=== PATIENT | female | born 1950 | race African-American/Black ===

== ENCOUNTER 2016-03-12 20:24 | Inpatient (IN) ==
[2016-03-12] MEDS ORDERED: *HR* HYDROmorphone (PF) 1 MG/ML SYRINGE IVP ONE (20:51)
[2016-03-12] MEDS ORDERED: Ondansetron 4 MG/2 ML VIAL IVP ONE ×2 (20:51→23:11)
[2016-03-12 21:29] LABS: Basophils % 0.8 %; Eosinophils # 0.1 K/mcL (0.0-0.6); Eosinophils % 2.5 %; Hematocrit 24.2 % (35.3-44.9); Immature Granulocytes % 0.6 % (0-4); Lymphocytes % 18.1 %; Mean Corpuscular HGB Conc 33.1 g/dL (31.6-35.5); Mean Corpuscular Hemoglobin 26.5 pg (28.0-33.3); Mean Corpuscular Volume 80.1 fL (83.0-100.0); Monocytes % 18.7 %; Neutrophils # 3.1 K/mcL (1.6-8.9); Nucleated Red Blood Cells 1.3 /100 WBC (0); Platelet Count 119 K/mcL (140-400); Red Blood Count 3.02 M/mcL (3.82-4.97); Red Cell Distribution Width 25.9 % (11.5-14.5); Segmented Neutrophils % 59.3 %
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
[2016-03-12 21:41] LABS: INR 1.6; Prothrombin Time 17.6 Seconds (9.4-12.1)
[2016-03-12 21:44] LABS: Activated Partial Thrombo Time 38.8 Seconds (26.0-36.0)
[2016-03-12 21:57] LABS: Acanthocytes 1+ (Not Present); Hypochromasia Present (Not Present); Platelet Estimate Normal (Normal)
[2016-03-12 22:13] LABS: Albumin 2.1 g/dL (3.5-5.0); Albumin/Globulin Ratio 0.4 (1.1-2.2); Bilirubin,Direct 1.6 mg/dL (0.0-0.5); Bilirubin,Indirect 0.6 mg/dL (0.0-1.2); Bilirubin,Total 2.2 mg/dL (0.2-1.2); Calcium 8.5 mg/dL (8.6-10.8); Globulin 5.5 g/dL (2.4-3.5); Potassium 3.3 mEq/L (3.5-4.5); Total Protein 7.6 g/dL (6.0-8.3)
[2016-03-12 23:22] LABS: Bilirubin,Urine Negative (Negative); Blood,Urine Moderate (Negative); Clarity,Urine Cloudy (Clear); Color,Urine Dark Yellow (Yellow); Glucose,Urine (UA) Normal (Normal); Ketones,Urine Negative (Negative); Leukocyte Esterase,Urine Moderate (Negative); Nitrite,Urine Negative (Negative); Protein,Urine 30 mg/dL (Neg-Trace); Urobilinogen,Urine Normal (Normal)
[2016-03-12 23:24] LABS: Bacteria,Urine Many per hpf (None-Few); Hyaline Casts,Urine None Seen per lpf (None-Few); RBC,Urine 15-30 per hpf (0-3); Squamous Epithelial Cell,Urine Many per lpf (None-Few); WBC,Urine TNTC per hpf (0-3)
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
[2016-03-13] MEDS ORDERED: Naloxone 0.4 MG/ML INJ IVP PRN (01:19)
[2016-03-13] MEDS ORDERED: *HR* Morphine 2 MG/ML SYRINGE IVP PRN (01:19)
[2016-03-13] MEDS ORDERED: Ondansetron 4 MG/2 ML VIAL IVP PRN (01:19)
[2016-03-13] MEDS ORDERED: 0.9 % Sodium Chloride 1,000 ML ONE (04:31)
[2016-03-13] MEDS ORDERED: *HR* Heparin 5,000 UNIT/ML VIAL SQ SCH (06:00)
[2016-03-13] MEDS: *HR* Morphine 2 MG/ML SYRINGE IVP PRN (10:02)
[2016-03-13] MEDS ORDERED: Sennosides/Docusate Sodium TABLET PO PRN (11:08)
--- NOTE | 2016-03-13 11:38 | Nephrology Consult Note ---
Date of Encounter: 03/13/16 Time of Encounter: 11:34 Assessment and Plan (1) Acute kidney failure Current Visit: No Status: Acute Patient has acute kidney failure likely secondary to prerenal azotemia secondary to poor by mouth intake along with nausea and vomiting. I recommend intravenous hydration that will need to be limited secondary to her current volume overloaded status. She eventually will need cautious diuresis once her renal function has improved. Strict Is and Os to monitor urine output. Cautious replacement of potassium. Qualifiers: Acute renal failure type: unspecified Qualified Code(s): N17.9 - Acute kidney failure, unspecified (2) CHF (congestive heart failure) Current Visit: Yes Status: Acute Patient with volume overload. Cardiology consulted. Caution with diuresis. Qualifiers: Congestive heart failure type: unspecified congestive heart failure type Congestive heart failure chronicity: chronic Qualified Code(s): I50.9 - Heart failure, unspecified (3) CKD (chronic kidney disease) stage 3, GFR 30-59 ml/min Current Visit: No Status: Chronic Per previous labs the patient has stage IIIB chronic kidney disease. Likely etiology is hypertension and diabetes, but I will look for other causes the serological workup that has been ordered. I recommend avoiding nephrotoxic agents, and adjusting medications for renal function. I am hopeful that her renal function will return to her baseline creatinine of around 1.7. Upon discharge she will need to follow up with [facility]. (4) Diabetes mellitus Current Visit: No Status: Chronic Per primary team. Qualifiers: Diabetes mellitus type: type 2 Diabetes mellitus complication status: with kidney complications Diabetes mellitus complication detail: with chronic kidney disease Diabetes mellitus retirement insulin use: without intermodal dispatcher use Chronic kidney disease stage: stage 4 (severe) Qualified Code(s): E11.22 - Type 2 diabetes mellitus with diabetic chronic kidney disease; N18.4 - Chronic kidney disease, stage 4 (severe) (5) Afib Current Visit: Yes Status: Acute Patient has afib with RVR and is on a cardizem drip. Rate is improving. Cardiology consulted. Follow. Qualifiers: Qualified Code(s): I48.91 - Unspecified atrial fibrillation (6) Pulmonary hypertension Current Visit: Yes Status: Acute Await cardiology evaluation. Caution with diuresis. (7) UTI (urinary tract infection) Current Visit: Yes Status: Acute Continue antibiotics. Qualifiers: Urinary tract infection type: site unspecified Hematuria presence: with hematuria Qualified Code(s): N39.0 - Urinary tract infection, site not specified; R31.9 - Hematuria, unspecified (8) Anemia Current Visit: Yes Status: Acute Agree with checking iron stores, vitamin B12, and folate. Evaluate for sources of blood loss. This may be related to her renal dysfunction and require erythropoiesis stimulating agents. Qualifiers: Qualified Code(s): D64.9 - Anemia, unspecified (9) Thrombocytopenia Current Visit: Yes Status: Acute Per the primary team. History of Present Illness - Reason for Consult Consult date: 03/13/16 Acute Kidney Injury - Chief Complaint OLGA nausea and vomiting - History of Present Illness Ms. Acosta is a 65 yo woman recently relocated to the area from [place] to live with her son who presents to [facility] for the evaluation of one week of nausea, vomiting and abdominal pain. She denies chest pain, but states she has stable shortness of breath. She also complains of constipation. 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 She reports occasionally taking Aleve, but denies taking any other over the counter medications. She denies any other problems. Past Med Surg Social Fam HX - Past Medical History Medical history: CHF, DVT, diabetes, hyperlipidemia Psychiatric history: no psych history - Past Surgical History Surgical History: hip replacement, knee replacement - Social History Smoking Status: Never smoker Smokeless Tobacco Status: No Alcohol use: none Drug use: none - Family History Mother Living Status: Hx Family Endocrine Disorder: Yes (DM) Father Living Status: Still Living Hx Family Cardiac Disorders: Yes Medications and Allergies Albuterol Neb [Proventil Neb] 2.5 mg IH TID PRN 01/12/16 [History] Bumetanide [Bumex] 1 mg PO BID 01/12/16 [History] Colesevelam [Welchol] 1,875 mg PO BID 01/12/16 [History] Lisinopril [Zestril] 2.5 mg PO DAILY 01/12/16 [History] Metformin [Glucophage] 1,000 mg PO BID 01/12/16 [History] Metoprolol Tartrate [Lopressor] 50 mg PO BID 01/12/16 [History] Rivaroxaban [Xarelto] 20 mg PO QPM 01/12/16 [History] SitaGLIPtin [Januvia] 100 mg PO DAILY 01/12/16 [History] Furosemide [Lasix] 40 mg PO BID #30 01/15/16 [Rx] Magnesium Oxide [Mag-Ox] 400 mg PO BID #30 tablet 01/15/16 [Rx] Potassium Chloride [K-Tab ER] 10 meq PO DAILY #30 tablet.er 01/15/16 [Rx] Allergies No Known Allergies Allergy (Verified 01/11/16 18:31) Review of Systems All Systems: reviewed and no additional remarkable complaints except as stated ( as documented in the HPI.) Exam - Vital Signs Vital signs: Initial Vital Signs Temp Pulse Resp BP Pulse Ox 97.6 F 129 16 109/68 96 03/12/16 20:25 03/12/16 20:25 03/12/16 20:25 03/12/16 20:25 03/12/16 20:25 Vital Signs - Last 8 Hours Temp Pulse Resp BP Pulse Ox 03/13/16 10:40 97.8 F 117 16 94/56 99 03/13/16 06:53 97.8 F 107 15 101/68 97 Intake and Output 03/12/16 03/13/16 03/13/16 23:59 07:59 15:59 Intake Total 0 / 100 Output Total 0 / 0 Balance 0 / 100 Intake: Oral 0 / 0 Output: Urine 0 / 0 Other: Blood Glucose* 112 - General Appearance General appearance: well-developed, well-nourished, obese EENT: ATNC, mucous membranes moist Neck: supple Additional Comments: Rales in bases. Left greater than right. Cardiology: edema, irregular rhythm Additional Comments: tachycardic Gastrointestinal: normoactive bowel sounds, no tenderness Integumentary: warm and dry Neurologic: alert and oriented x3 Musculoskeletal: no cyanosis Psychiatric: mood/affect appropriate Results - Lab Results 03/12/16 21:16 03/12/16 21:44 Most recent lab results Calcium 8.5 mg/dL (8.6-10.8) L 03/12/16 21:44 Consult Discharge Plan - Plan Referrals: NO,PCP [Non-Partnered Physician] -
[2016-03-13] MEDS: Lactulose Oral Soln 20 GM/30 ML UDC PO SCH ×2 (12:28→21:34)
[2016-03-13 13:13] LABS: Magnesium 1.8 mg/dL (1.6-2.6)
--- NOTE | 2016-03-13 13:46 | Internal Med Progress Note ---
<Gaetano Hayward - Last Filed: 03/13/16 13:43> Date of Encounter: 03/13/16 Time of Encounter: 08:20 - Assessment and plan (1) Anasarca Current Visit: Yes Status: Acute Assessment and plan: Secondary to renal failure and congestive heart failure with ascites, abdominal pain, and bilateral pleural effusions. Consideration for SBP. Will order diagnostic paracentesis, likely done tomorrow Given patient's low albumin, anemia, and thrombocytopenia, concern for hepatic disease, LFTs normal We will send peritoneal fluid for diagnostic studies We will consult nutrition for concerns of decreased albumin Will obtain hepatitis panel and HIV Ceftriaxone 2g/day (2) CHF (congestive heart failure) Current Visit: Yes Status: Acute Assessment and plan: Echocardiogram on 01/12/16 demonstrated left ventricular ejection fraction of 60 % with indeterminate diastolic function. There is also suggested findings of right ventricular pressure overload and severe pulmonary hypertension with estimated right ventricular systolic pressure of 65mmHg. and possible severe tricuspid regurgitation The patient is currently volume overloaded with pitting edema to her rib cage and bilateral pleural effusions. Diuresis could result in worsening of tachycardia, hypotension, and renal function Consult to cardiology Qualifiers: Congestive heart failure type: unspecified congestive heart failure type Congestive heart failure chronicity: chronic Qualified Code(s): I50.9 - Heart failure, unspecified (3) Chronic kidney disease, stage 4, severely decreased GFR Current Visit: Yes Status: Acute Assessment and plan: Acute on chronic renal failure. Patient was previously stage 3 CKD. She admits to poor oral intake due to abdominal tightness, nausea and vomiting GFR admission was 24 Will avoid direct fluid repletion due to worsening of third spacing of fluid overload. Will control patient nausea and vomiting and allow her to eat Nephrology following appreciate recommendations for continued management/care Continue to monitor both labs and strict I's and O's Avoid nephrotoxic agents (4) Afib Current Visit: Yes Status: Acute Assessment and plan: Patient presents in A. fib with RVR likely due to patient volume status, third space fluids, and overall discomfort. Patient was started on Cardizem drip admission. Current heart rate in the 110s, but regular. We will continue to titrate Cardizem drip to achieve better heart rate control Cardiology consult and appreciate recommendations for continued management/care Continue to monitor with telemetry Continue anticoagulation with heparin Qualifiers: Qualified Code(s): I48.91 - Unspecified atrial fibrillation (5) Anemia Current Visit: Yes Status: Acute Assessment and plan: Hemoglobin on admission 8.0. Patient does not appear to be any distress caused by her low hemoglobin suggesting this is more of a chronic issue. Unsure of etiology at the moment. Anemia appears microcytic, with normal iron panel, B12 , and folate. Elevated RDW. Patient also has low platelets and albumin, possible concern for liver etiology of anemia, though chronic disease cannot be excluded. We will continue to follow hemoglobin with daily labs We will obtain hepatitis panel Iron profile normal We will obtain fecal occult blood test Qualifiers: Qualified Code(s): D64.9 - Anemia, unspecified (6) Pulmonary hypertension Current Visit: Yes Status: Acute Assessment and plan: Echocardiogram performed in January 2016 shows elevated right ventricular pressure of 65 with potentially severe tricuspid regurgitation. At theology of patient pulmonary hypertension unclear at the moment. Cardiology consulted and appreciate recommendations for continue management/care Continue supplemental oxygen as needed, wean as tolerated (patient baseline oxygenation 5-6 L per hour) (7) Thrombocytopenia Current Visit: Yes Status: Acute Assessment and plan: Suggestive of liver etiology of thrombocytopenia, anemia, low albumin. Plan as above (8) Diabetes mellitus Current Visit: No Status: Chronic Assessment and plan: On [facility] as outpatient. Low-dose insulin sliding scale Qualifiers: Diabetes mellitus type: type 2 Diabetes mellitus complication status: with kidney complications Diabetes mellitus complication detail: with chronic kidney disease Diabetes mellitus nursing home insulin use: without nursing home use Chronic kidney disease stage: stage 4 (severe) Qualified Code(s): E11.22 - Type 2 diabetes mellitus with diabetic chronic kidney disease; N18.4 - Chronic kidney disease, stage 4 (severe) (9) DVT prophylaxis Current Visit: Yes Status: Acute Assessment and plan: Heparin 5000 units subcutaneous twice a day - Subjective Interval history: Patient reports he woke this morning, with a concern of hunger. She states she has had resolution of her nausea that she admits she has not eaten anything due to nothing by mouth status. She denies that she ever had abdominal pain, but describes more as a tightness around her abdomen that she attributes to fluid. She also states she has had tightness in both of her lower extremities recently. She denies chest pain, denies shortness of breath, denies cough, denies fever/chills, denies pain in her sides, denies weakness. - Constitutional Vitals: Temp Pulse Resp BP Pulse Ox 97.7 F 114 16 102/62 94 L 03/13/16 12:18 03/13/16 12:18 03/13/16 12:18 03/13/16 12:18 03/13/16 12:18 General appearance: Present: mild distress, A&O X 3 Exam: General: Cooperative, pleasant, no acute distress, alert and oriented 3, answers questions appropriately Head: Normocephalic, atraumatic Eye: Conjunctiva pink, sclera anicteric, EOMI, PERRL Neck: Supple, trachea midline Respiratory: No accessory muscle usage, slight bibasilar rales appreciated on auscultation, no wheezes/rhonchi Cardiovascular: Tachycardia, S1 and S2 present, no murmurs/rubs/gallops/clicks appreciated GI/abdominal: Anasarca the patient ribs, midline surgical incision, no fluid wave appreciated, no overt signs of abdominal distention, nontender, soft, normal bowel sounds, no peritoneal signs Extremities: Calf slightly tender to palpation, noncyanotic, +1 pitting edema and tiny bilateral lower extremities, warm, lower extremity pulses palpable and symmetrical, left lower extremity scar, discolored, slightly more swollen than right (normal for her) Neurological: Alert and oriented 3, no facial droop,deficits, no focal deficits Skin: Dry, intact, normal color Internal Medicine: Result - Labs CBC & Chem 7: 03/12/16 21:16 03/12/16 21:44 - ABG Interpretation ABG results: PT/INR, D-dimer PT 17.6 Seconds (9.4-12.1) H 03/12/16 21:16 Consult Discharge Plan - Plan Referrals: NO,PCP [Non-Partnered Physician] - <Jn Sumner - Last Filed: 03/13/16 15:23> Date of Encounter: 03/13/16 - Constitutional Vitals: Temp Pulse Resp BP Pulse Ox 97.5 F L 115 16 107/71 93 L 03/13/16 14:35 03/13/16 14:35 03/13/16 14:35 03/13/16 14:35 03/13/16 14:35 Internal Medicine: Result - Labs CBC & Chem 7: 03/12/16 21:16 03/12/16 21:44 - ABG Interpretation ABG results: PT/INR, D-dimer PT 17.6 Seconds (9.4-12.1) H 03/12/16 21:16 - Attending Attestation I examined this patient and my medical decision-making was reviewed with the [employer] ADMINISTRATOR/PA/Advanced Practice Nurse/Resident Physician. I agree with the documented findings, disposition and treatment plan as described except to the extent set forth below. Patient with underlying pulmonary hypertension and chronic kidney disease. Currently with acute kidney injury and clinical findings consistent with fluid overload. However, she looked dehydrated and has had poor oral intake in the last couple of days. Continue recommendations by nephrology and cardiology. We will check for hepatitis profile, thyroid function tests, hemoglobin A1c, HIV. Patient has some thrombocytopenia, elevated prothrombin time, anemia and ascites along with hypoalbuminemia. Concerning for possible chronic liver disease. Patient is on iv antibiotics, a consultation with interventional radiology has been requested for a possible paracenteses in order to rule out spontaneous bacterial peritonitis. Will give lactulose and MiraLAX today. We will continue monitoring.
[2016-03-13 13:49] LABS: Folate 14.3 ng/mL (7.0-31.4); Hepatitis B Surface Antigen Nonreactive (Nonreactive); Vitamin B12 690 pg/mL (213-816)
[2016-03-13] MEDS ORDERED: *HR* Dextrose 50 % in Water (Syg) 50 ML SYRINGE IVP PRN (14:13)
[2016-03-13] MEDS ORDERED: Dextrose Gel 15 GM PO PRN ×2 (14:13)
[2016-03-13] MEDS ORDERED: D5% in Water 1,000 ML IV PRN (14:13)
--- NOTE | 2016-03-13 14:14 | Cardiology Consult Note ---
<Maykel Sandoval - Last Filed: 03/13/16 15:43> Date of Encounter: 03/13/16 Time of Encounter: 14:15 Assessment and Plan (1) Anasarca Current Visit: Yes Status: Acute Per Cardiology: Suspect multifactorial-- acute kidney injury and severe pulmonary hypertension. Presents with ascites, abdominal pain, and bilateral pleural effusions. Albumin noted to be 2.1. Nephrology recommendations noted. Has pending paracentesis scheduled for tomorrow. May require ultrafiltration. (2) Pulmonary hypertension Current Visit: Yes Status: Acute Per Cardiology: Previous echo showed severe pulmonary hypertension. Previous chest x-ray January 2016 showed CHF. No chest x-ray available for review upon this admission, will check chest x-ray and BNP. Patient reports history of pulmonary hypertension follows with pulmonology in [place]. Will attempt to obtain medical records. Pulmonology consult placed. (3) Afib Current Visit: Yes Status: Acute Per Cardiology: Patient with long-standing history of atrial fibrillation. Had previously been anticoagulated with Coumadin and Xarelto, however most recently discontinued due to anemia and worsening kidney function. Will attempt to obtain cardiology records from [place], [place]. Has not been seen by local cardiology in the past. Currently A. fib with RVR with average heart rate past 24 hours 120. Off Cardizem drip and Lopressor 25 mg by mouth 3 times a day. Systolic blood pressure currently the 90s to 100s. Will decrease BB to BID dosing. Will monitor and consider adding calcium channel binh if needed. Suspect will be difficult to rate control and to underlying issues improved. Magnesium 1.8, potassium = 3.3. TSH pending. Echocardiogram from January 2016 showed EF preserved 60%, indeterminate diastolic function, intraventricular septum flattening suggestive of RV pressure overload, mildly dilated right ventricle with mildly reduced function, mild MR, probable severe TR, severe pulmonary hypertension with estimated RVSP 65 mmHg. Troponin negative at 0.02. Regarding long-term anticoagulation, has [id number] = at least 4. Current hemoglobin and hematocrit 8 and 24. Patient reports Xarelto discontinued prior to moving to [place] recently due to worsening anemia and worsening kidney function. Do not recommend anticoagulation at this time, we'll continue to evaluate during hospital stay. Reports hx of DVT and filter as well. Qualifiers: Atrial fibrillation type: unspecified Qualified Code(s): I48.91 - Unspecified atrial fibrillation (4) Anemia Current Visit: Yes Status: Acute Per Cardiology: Hemoglobin and hematocrit currently 8 and 24. Will continue SQ heparin for now, monitor cautiously. Monitor for any active bleeding or blood loss. Qualifiers: Anemia type: unspecified type Qualified Code(s): D64.9 - Anemia, unspecified (5) Acute kidney failure Current Visit: No Status: Acute Per Cardiology: Nephrology following. Appears to have acute kidney injury. Baseline kidney function unknown, last creatinine January 2016 and 1.8 and currently 2.43. Has renal ultrasound pending. Qualifiers: Acute renal failure type: unspecified Qualified Code(s): N17.9 - Acute kidney failure, unspecified (6) Hypokalemia Current Visit: Yes Status: Acute Per Cardiology: Potassium noted to be 3.3, not replaced. We'll replaced with K rider-- patient presented with nausea and abdominal pain. (7) UTI (urinary tract infection) Current Visit: Yes Status: Acute Per Cardiology: On antibiotics per primary service with urine culture pending. Afebrile with no leukocytosis. Qualifiers: Urinary tract infection type: site unspecified Hematuria presence: with hematuria Qualified Code(s): N39.0 - Urinary tract infection, site not specified; R31.9 - Hematuria, unspecified Discussion w patient/family: The assessment and plan as outlined above was discussed with the patient and/or family members who expressed understanding and agreement. All questions were answered. Thank you for involving us in the care of your patient. Please call with any questions. History of Present Illness Consult date: 03/13/16 Requesting physician: Hilton Nick Consult reason: Afib RVR, CHF Chief complaint: Abdominal Pain, Nausea History of present illness: Ms. Acosta is a 65 year old -[place] female with a relevant past medical history of DM2, CHF, CK D, hyperlipidemia, DVT, pulmonary hypertension. Records do not indicate past history of atrial fibrillation, however ECG from January 2016 showed atrial fibrillation. Requires oxygen at home. Cardiology consult for volume overload and A. fib with RVR. Upon review of medical records has not been seen by cardiology. Patient is listed as DNR for care arrest. Palliative care consult pending as well. Patient reports admitted for worsening abdominal pain, nausea, decreased by mouth appetite and intake. Reports increased short of breath at rest from her baseline with worsening swelling to abdominal area. She reports she wears oxygen at home 24 7. Reports just moved to [place] from [facility] around . She reports past history of atrial fibrillation for many years and follows with cardiology in [place] for CHF and her atrial fibrillation. Reports had been on Coumadin and most recently on Xarelto, however discontinued prior to moving here due to worsening anemia and kidney function. She reports she believes she's has a filter in place. She denies any current active bleeding or blood loss. She denies any chest pain or palpitations. Reports shortness of breath slightly improved during hospital stay. She reports was attempting to establish with cardiology as an outpatient. Has not established with nephrology or pulmonology as well. She denies any known history of CAD and reports left heart catheterization many years ago. Denies a pacemaker or ICD. Of note, patient and family did confirm her desire to be DNR/Comfort Care arrest. Past Med Surg Social Fam HX - Past Medical History Attestation: Yes The following information was validated with the patient. Source: patient, old records reviewed Medical history: atrial fibrillation, CHF, DVT, diabetes, hyperlipidemia, other (Pulmonary hypertension) Psychiatric history: no psych history - Past Surgical History Surgical History: hip replacement, knee replacement - Social History Smoking Status: Never smoker Smokeless Tobacco Status: No Alcohol use: none Drug use: none - Family History Mother Living Status: Hx Family Endocrine Disorder: Yes (DM) Father Living Status: Still Living Hx Family Cardiac Disorders: Yes Medications and Allergies Albuterol Neb [Proventil Neb] 2.5 mg IH TID PRN 01/12/16 [History] Bumetanide [Bumex] 1 mg PO DAILY 01/12/16 [History] Metoprolol Tartrate [Lopressor] 50 mg PO BID 01/12/16 [History] Rivaroxaban [Xarelto] 20 mg PO QPM 01/12/16 [History] SitaGLIPtin [Januvia] 100 mg PO DAILY 01/12/16 [History] Furosemide [Lasix] 20 mg PO DAILY 03/13/16 [History] Losartan [Cozaar] 25 mg PO DAILY 03/13/16 [History] Magnesium Oxide [Mag-Ox] 400 mg PO DAILY 03/13/16 [History] Potassium Chloride [K-Tab ER] 10 meq PO BID 03/13/16 [History] Allergies No Known Allergies Allergy (Verified 01/11/16 18:31) All Systems Review: A 10-system review of systems was performed and is negative for pertinent findings except as documented above in the HPI. - Constitutional Constitutional: fatigue - Cardiovascular Cardiovascular: as per HPI, dyspnea at rest, dyspnea on exertion, irregular heart rhythm, leg edema, orthopnea - Respiratory Respiratory: dyspnea - Gastrointestinal Gastrointestinal: abdominal pain, diarrhea, nausea Physical Examination Vital Signs, Last 4 Hours Temp Pulse Resp BP Pulse Ox 03/13/16 12:18 97.7 F 114 16 102/62 94 L 03/13/16 10:40 97.8 F 117 16 94/56 99 General: Conversant HEENT: Atraumatic, Normocephaly Neck: Normal carotid pulses Cardiac: No Murmur, Other (Irregular irregular) Lungs: Other (Conversational dyspnea noted, respirations labored at rest, scattered rhonchi throughout, diminished breath sounds throughout) Abdomen: Non-Tender, Other (Distended, +2 pitting edema to abdomen) Skin: No rashes noted on visualized skin Musculoskeletal: No Chest Wall Tenderness Extremities: Other (trace bilateral LE edema) Results 03/12/16 21:16 03/12/16 21:44 Lab Results Laboratory Tests 01/11/16 01/11/16 03/12/16 18:57 18:57 21:16 Hgb 8.9 L 8.0 L Hct 29.3 L 24.2 L INR Potassium Creatinine 1.80 H Magnesium AST ALT Troponin I Albumin Urine Bacteria Ur Culture Indicated? 03/12/16 03/12/16 03/12/16 21:16 21:16 21:44 Hgb Hct INR 1.6 Potassium 3.3 L Creatinine 2.43 H Magnesium AST 32 ALT 30 Troponin I 0.02 Albumin 2.1 L Urine Bacteria Ur Culture Indicated? 03/12/16 03/13/16 23:10 12:47 Hgb Hct INR Potassium Creatinine Magnesium 1.8 AST ALT Troponin I Albumin Urine Bacteria Many H Ur Culture Indicated? YES A ITS Impressions Abdomen/Pelvis CT 03/12/16 20:51 IMPRESSION: Significant third-spacing with bilateral pleural effusions, ascites, and anasarca. D/ / Billy Tate MD / Billy Tate MD Interpreting Provider: Billy Tate MD Intake & Output 03/10/16 03/11/16 03/12/16 03/13/16 23:59 23:59 23:59 23:59 Intake Total 460 / 460 Output Total 0 / 0 Balance 460 / 460 Weight 104.326 kg 105.4 kg Active Medications Dextrose/Water (Dextrose 50% (Syg)) 25 ml IVP AD PRN PRN Reason: Hypoglycemia Stop: 09/12/16 14:14 Glucagon (Glucagen) 1 mg IM ONCE PRN PRN Reason: Hypoglycemia Stop: 09/12/16 14:14 Glucose (Gluctose) 15 gm PO ONCE PRN PRN Reason: Hypoglycemia Stop: 09/12/16 14:14 Glucose (Gluctose) 30 gm PO ONCE PRN PRN Reason: Hypoglycemia Stop: 09/12/16 14:14 Heparin Sodium (Porcine) (Heparin) 5,000 unit SQ Q12HR JARRETT Stop: 09/12/16 06:01 Last Admin: 03/13/16 09:45 Dose: Not Given Ceftriaxone Sodium 2,000 mg/ (Dextrose) 100 mls @ 200 mls/hr IVPB Q24H JARRETT Stop: 09/12/16 03:01 Last Admin: 03/13/16 04:23 Dose: Not Given Diltiazem HCl 125 mg/ Dextrose 125 mls @ 10 mls/hr IVC .[id number] JARRETT; 10 MG/HR PRN Reason: Protocol Stop: 09/12/16 04:01 Dextrose (Dextrose 5%) 1,000 mls @ 100 mls/hr IV CONT PRN PRN Reason: HYPOGLYCEMIA Stop: 09/12/16 14:14 Insulin Human Lispro (Humalog) 0 units SQ HS JARRETT PRN Reason: Protocol Stop: 09/12/16 21:01 Insulin Human Lispro (Humalog) 0 units SQ TIDAC JARRETT PRN Reason: Protocol Stop: 09/12/16 16:31 Lactulose (Lactulose) 20 gm PO BID [facility] Stop: 09/12/16 12:16 Last Admin: 03/13/16 12:28 Dose: 20 gm Metoprolol Tartrate (Lopressor) 25 mg PO TID JARRETT Stop: 09/12/16 04:01 Last Admin: 03/13/16 10:02 Dose: Not Given Morphine Sulfate (Morphine Sulfate) 2 mg IVP Q3H PRN PRN Reason: Severe Pain (7-10) Stop: 09/12/16 01:20 Last Admin: 03/13/16 10:02 Dose: 2 mg Naloxone HCl (Narcan) 0.4 mg IVP Q2MIN PRN PRN Reason: Opioid Reversal Stop: 09/12/16 01:20 Ondansetron HCl (Zofran) 4 mg IVP Q8HR PRN PRN Reason: Nausea And Vomiting Stop: 09/12/16 01:20 Polyethylene Glycol (Miralax) 17 gm PO DAILY JARRETT Stop: 09/12/16 12:16 Last Admin: 03/13/16 12:28 Dose: 17 gm Senna/Docusate Sodium (Senna Plus) 2 each PO BID PRN; Protocol PRN Reason: Constipation Stop: 09/12/16 11:09 - Imaging and Cardiology Chest Xray: pending Echo: report reviewed - EKG Interpretation EKG results cardiology: personally reviewed (Atrial fibrillation with rapid ventricular response), other (24 hour telemetry reviewed with average heart rate 120, atrial fibrillation, current heart rate 110 atrial fibrillation.) Consult Discharge Plan - Plan Referrals: NO,PCP [Non-Partnered Physician] - <Latricia Graves - Last Filed: 03/13/16 16:39> Date of Encounter: 03/13/16 Assessment and Plan Discussion w patient/family: The assessment and plan as outlined above was discussed with the patient and/or family members who expressed understanding and agreement. All questions were answered. Thank you for involving us in the care of your patient. Please call with any questions. History of Present Illness History of present illness: Ms. Acosta is a 65 year old female All Systems Review: A 10-system review of systems was performed and is negative for pertinent findings except as documented above in the HPI. Physical Examination Vital Signs, Last 4 Hours Temp Pulse Resp BP Pulse Ox 03/13/16 14:35 97.5 F L 115 16 107/71 93 L Results 03/12/16 21:16 03/12/16 21:44 Lab Results 03/13/16 03/13/16 12:47 12:47 Magnesium 1.8 B-Natriuretic Peptide 604 H - Attending Attestation I examined this patient and my medical decision-making was reviewed with the RADIO OPERATOR GROUND/PA/Advanced Practice Nurse/Resident Physician. I agree with the documented findings, disposition and treatment plan. Ms. Acosta has a very complicated past medical history. Her medical care has been out of [facility]. She recently moved to be closer to her family. She is able to tell us that she has known Pulmonary Hypertension and was treated by a Tube Laser Operator in [place]. Her recent echo performed here demonstrates severe pulmonary hypertension and severe TR. She presented mainly for abdominal and LE swelling which is likely multifactorial and in part secondary to right sided heart failure. She was on diuretics at home and also presents with ARF on what appears to be CKD. Nephrology is following. This is also complicated by anemia as well as AF which was seen on an ECG done on a prior visit. We recommend obtaining records from [place]. In addition, we will get a CXR and a BNP to help guide understanding of her fluid status. I suspect she is intravascularly deplete but volume overloaded from poor output. We will follow along with Nephrology for management. In regards to AF, we will attempt rate control. We do not recommend anticoagulation at this time secondary to anemia with Hgb 8.
[2016-03-13] MEDS: Insulin LISPRO 300 UNITS/3 ML VIAL SQ SCH (17:00)
[2016-03-13] MEDS: *HR* Heparin 5,000 UNIT/ML VIAL SQ SCH (17:08)
[2016-03-13] MEDS ORDERED: Insulin LISPRO 300 UNITS/3 ML VIAL SQ SCH (21:00)
[2016-03-14] MEDS: *HR* Morphine 2 MG/ML SYRINGE IVP PRN (00:08)
[2016-03-14 04:21] LABS: Basophils # 0.1 K/mcL (0.0-0.2); Basophils % 1.6 %; Eosinophils # 0.1 K/mcL (0.0-0.6); Eosinophils % 3.1 %; Hemoglobin 8.2 g/dL (11.5-15.4); Immature Granulocytes % 0.5 % (0-4); Immature Platelets 9.3 % (1.1-6.1); Lymphocytes # 0.8 K/mcL (0.6-4.6); Lymphocytes % 18.6 %; Mean Corpuscular HGB Conc 32.8 g/dL (31.6-35.5); Mean Corpuscular Hemoglobin 26.7 pg (28.0-33.3); Mean Corpuscular Volume 81.4 fL (83.0-100.0); Mean Platelet Volume 10.7 fL (9.4-12.4); Monocytes # 0.7 K/mcL (0.0-1.3); Monocytes % 15.8 %; Neutrophils # 2.6 K/mcL (1.6-8.9); Nucleated Red Blood Cells 1.4 /100 WBC (0); Platelet Count 115 K/mcL (140-400); Red Blood Count 3.07 M/mcL (3.82-4.97); Red Cell Distribution Width 26.6 % (11.5-14.5); Segmented Neutrophils % 60.4 %
[2016-03-14 04:37] LABS: Hemoglobin A1C 5.6 %
[2016-03-14 04:41] LABS: Albumin 2.2 g/dL (3.5-5.0); Calcium 8.4 mg/dL (8.6-10.8); Magnesium 1.7 mg/dL (1.6-2.6); Phosphorous 3.7 mg/dL (2.3-4.7); Potassium 4.1 mEq/L (3.5-4.5); Uric Acid 12.6 mg/dL (2.6-6.0)
[2016-03-14 04:47] LABS: Poikilocytosis 3+ (Not Present); Target Cells 3+ (Not Present)
[2016-03-14 04:48] LABS: Anisocytosis 3+ (Not Present); Large Platelets Present (Not Present); Microcytosis Present (Not Present); Platelet Estimate Slight Decrease (Normal); Reactive Lymphocytes Present (Not Present)
[2016-03-14 05:05] LABS: Thyroid Stimulating Hormone 8.084 mcIU/mL (0.350-4.840)
[2016-03-14] MEDS: *HR* Heparin 5,000 UNIT/ML VIAL SQ SCH ×2 (05:41→17:11)
[2016-03-14] MEDS: Insulin LISPRO 300 UNITS/3 ML VIAL SQ SCH ×3 (08:02→16:18)
--- NOTE | 2016-03-14 08:43 | Pulmonology Consult Note ---
Date of Encounter: 03/14/16 Time of Encounter: 08:38 Assessment and Plan (1) Pulmonary hypertension Current Visit: Yes Status: Acute Conclusion this is a 65-year-old woman with a history of pulmonary hypertension presenting with worsening anasarca and kidney dysfunction. Overall presentation is very concerning for worsening pulmonary hypertension per record patient would fit category of pulmonary arteriolar hypertension or at least concerning upfront. I reviewed her prior echo done approx 2 months prior and it is notable for sever Pulm HTN with reduced RV function. Left heart with PEF and diastology could not be determined. 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 Cannot exclude CTEPH but would hold off on further w/u as hopefully prior records will help to sort this out (which we have requested). Dictation is very concerning and I suspect that if patient does have a history of pulmonary arteriolar hypertension she would need to be transferred to a tertiary referral center for catheter directed (likely) infusion therapy given severity of kidney dysfunction and with likely inotropic support given borderline blood pressure. If outside hospital records to term and that this is in fact not pulmonary arterial hypertension but she has some significant left heart disease which seems unlikely given the echo that was done in the recent past here at this hospital would treat as decompensated left-sided heart failure and would have to work very closely with cardiology to address this. In the Interim recommend: repeating 2D echo at this time Gentle diuresis as tolerated by BP (-0.5L) daily [facility] for all records particularly if RHC has been done with pressure readings (2) Afib Current Visit: Yes Status: Acute She is currently being managed by cardiology Qualifiers: Atrial fibrillation type: unspecified Qualified Code(s): I48.91 - Unspecified atrial fibrillation (3) Anasarca Current Visit: Yes Status: Acute Related to worsening Right heart failure (4) Chronic kidney disease, stage 4, severely decreased GFR Current Visit: Yes Status: Acute Acute on chronic complicated by chronic heart failure with pulmonary hypertension nephrology has been consulted continue to monitor strict ins and outs (5) DVT prophylaxis Current Visit: Yes Status: Acute Agree with DVT prophylaxis while long-term anticoagulation is on hold pending outside hospital records (6) Counseling regarding goals of care Current Visit: No Status: Acute Suspect underlying overall prognosis poor patient has shown some thoughts in the past of not wanting aggressive care if this is the case would likely need another palliative care consult and possibly even entering a hospice program and I think we really have reached a transition with her care but hopefully after can considering all her records next 2448 hrs. we will have a better idea of her exact prognosis and the level of aggressive care that would be needed to give her an increased chance of survival (7) PARAG on CPAP Current Visit: No Status: Chronic Have patient bring in home CPAP if does not currently have could do auto titration CPAP hear History of Present Illness Consult date: 04/03/16 Requesting physician: Latricia Graves Reason for consult: pulmonary hypertension Chief complaint: Lower Extremity Edema History of present illness: This is a pleasant 65-year-old woman with a medical history of pulmonary hypertension chronic kidney failure and heart failure. She presented to emergency department after a proximal 10 pound weight gain over the last couple of weeks. Increasing lethargy and more abdominal fullness with less appetite and increase in lower extremity edema despite compliance with home diuretic regimen. Noted to have anasarca with worsening creatinine on admission. She recently moved from [facility] where she states she had been diagnosed with pulmonary hypertension and at least up until recently had been on the medication she cannot remember the name but says it was very expensive for pulmonary hypertension. She says she has had a full workup for pulmonary hypertension while in [place]. She moved here because of her failing health to be near her son. She has had at least one admission to [facility] in the past around the time of . She is a lifetime nonsmoker she does not have any industrial Center/occupational exposures denies [id number] or herbal supplement. No family history of pulmonary hypertension she does have a history of blood clot (LEDVT in distant past) and atrial fibrillation and was on Coumadin and transition to Xarelto currently that is being held. She denies chronic liver dysfunction history of alcohol abuse connected tissue diseases or sickle cell disease . She chronically wears 5-6 L of oxygen via nasal cannula. She also has been diagnosed with obstructive sleep apnea and is prescribed PAP pressure at night Past Med Surg Social Fam HX - Past Medical History Medical history: atrial fibrillation, CHF, DVT, diabetes, hyperlipidemia, other (Pulmonary hypertension) Psychiatric history: no psych history - Past Surgical History Surgical History: hip replacement, knee replacement - Social History Smoking Status: Never smoker Smokeless Tobacco Status: No Alcohol use: none Drug use: none - Family History Mother Living Status: Hx Family Endocrine Disorder: Yes (DM) Father Living Status: Still Living Hx Family Cardiac Disorders: Yes Medications and Allergies Albuterol Neb [Proventil Neb] 2.5 mg IH TID PRN 01/12/16 [History] Bumetanide [Bumex] 1 mg PO DAILY 01/12/16 [History] Metoprolol Tartrate [Lopressor] 50 mg PO BID 01/12/16 [History] Rivaroxaban [Xarelto] 20 mg PO QPM 01/12/16 [History] SitaGLIPtin [Januvia] 100 mg PO DAILY 01/12/16 [History] Furosemide [Lasix] 20 mg PO DAILY 03/13/16 [History] Losartan [Cozaar] 25 mg PO DAILY 03/13/16 [History] Magnesium Oxide [Mag-Ox] 400 mg PO DAILY 03/13/16 [History] Potassium Chloride [K-Tab ER] 10 meq PO BID 03/13/16 [History] Allergies No Known Allergies Allergy (Verified 01/11/16 18:31) All Systems: A 10-system review of systems was performed and is negative for pertinent findings except as documented above in the HPI. Physical Examination Vital Signs: Vital Signs, Last 4 Hours Temp Pulse Resp BP Pulse Ox 03/14/16 07:44 97.8 F 86 18 91/60 94 L 03/14/16 05:39 96/66 03/14/16 04:40 97.6 F 70 18 87/49 92 L General appearance: no acute distress, lethargic, other (Sleepy but easily arousable) Eyes: nonicteric Neck: supple Effort: normal Auscultation: bilateral: diminished breath sounds, rales Cardiovascular: irregular rhythm Gastrointestinal: normoactive bowel sounds, soft, non-tender Extremities: edema, anasarca Musculoskeletal: no deformities normal mental status, non-focal exam mood appropriate Results - Laboratory Findings CBC and BMP: 03/14/16 04:02 03/14/16 04:02 PT/INR, D-dimer PT 17.6 Seconds (9.4-12.1) H 03/12/16 21:16 Abnormal lab findings: Abnormal lab results RBC 3.07 M/mcL (3.82-4.97) L 03/14/16 04:02 Hgb 8.2 g/dL (11.5-15.4) L 03/14/16 04:02 Hct 25.0 % (35.3-44.9) L 03/14/16 04:02 MCV 81.4 fL (83.0-100.0) L 03/14/16 04:02 MCH 26.7 pg (28.0-33.3) L 03/14/16 04:02 RDW 26.6 % (11.5-14.5) H 03/14/16 04:02 Plt Count 115 K/mcL (140-400) L 03/14/16 04:02 Nucleated RBCs/100 WBC 1.4 /100 WBC (0) H 03/14/16 04:02 Reactive Lymphocytes Present (Not Present) A 03/14/16 04:02 Platelet Estimate Slight Decrease (Normal) L 03/14/16 04:02 Large Platelets Present (Not Present) A 03/14/16 04:02 Immature Plt Fraction 9.3 % (1.1-6.1) H 03/14/16 04:02 Hypochromasia Present (Not Present) A 03/12/16 21:16 Poikilocytosis 3+ (Not Present) A 03/14/16 04:02 Anisocytosis 3+ (Not Present) A 03/14/16 04:02 Microcytosis Present (Not Present) A 03/14/16 04:02 Target Cells 3+ (Not Present) A 03/14/16 04:02 Acanthocytes (Spur) 1+ (Not Present) A 03/12/16 21:16 PT 17.6 Seconds (9.4-12.1) H 03/12/16 21:16 APTT 38.8 Seconds (26.0-36.0) H 03/12/16 21:16 Creatinine 2.37 mg/dL (0.57-1.11) H 03/14/16 04:02 Est GFR ( Amer) 25 (> 60) L 03/14/16 04:02 Est GFR (Non-Af Amer) 21 (> 60) L 03/14/16 04:02 Glucose 145 mg/dL (70-99) H 03/14/16 04:02 POC Glucose 135 (58-89) H 03/14/16 07:49 Uric Acid 12.6 mg/dL (2.6-6.0) H 03/14/16 04:02 Calcium 8.4 mg/dL (8.6-10.8) L 03/14/16 04:02 Total Bilirubin 2.2 mg/dL (0.2-1.2) H 03/12/16 21:44 Direct Bilirubin 1.6 mg/dL (0.0-0.5) H 03/12/16 21:44 C-Reactive Protein 45 mg/L (Less than 5) H 03/13/16 05:15 B-Natriuretic Peptide 604 pg/mL (0-100) H 03/13/16 12:47 Albumin 2.2 g/dL (3.5-5.0) L 03/14/16 04:02 Globulin 5.5 g/dL (2.4-3.5) H 03/12/16 21:44 Albumin/Globulin Ratio 0.4 (1.1-2.2) L 03/12/16 21:44 TSH 8.084 mcIU/mL (0.350-4.840) H 03/14/16 04:02 PTH Intact 471.8 pg/ml (8.5-72.5) H 03/14/16 04:02 Urine Clarity Cloudy (Clear) A 03/12/16 23:10 Urine Protein 30 mg/dL (Neg-Trace) H 03/12/16 23:10 Urine Blood Moderate (Negative) H 03/12/16 23:10 Ur Leukocyte Esterase Moderate (Negative) H 03/12/16 23:10 Urine Microscopic RBC 15-30 per hpf (0-3) H 03/12/16 23:10 Urine Microscopic WBC TNTC per hpf (0-3) H 03/12/16 23:10 Ur Squamous Epith Cells Many per lpf (None-Few) H 03/12/16 23:10 Urine Bacteria Many per hpf (None-Few) H 03/12/16 23:10 Ur Culture Indicated? YES (NO) A 03/12/16 23:10 - Diagnostic Findings Chest x-ray: report reviewed, image reviewed - Clinical Findings Intake & Output: Intake & Output 03/13/16 03/14/16 03/14/16 23:59 07:59 15:59 Intake Total 540 / 540 117.5 / 117.5 Balance 540 / 540 117.5 / 117.5 Weight 108.5 kg Consult Discharge Plan - Plan Referrals: Lolita Vazquez DO [Resident] - 03/22/16 10:00 am
[2016-03-14] MEDS: Lactulose Oral Soln 20 GM/30 ML UDC PO SCH (08:45)
[2016-03-14] MEDS ORDERED: Nystatin POWDER 30 GM BOTTLE TP SCH (09:00)
--- NOTE | 2016-03-14 09:11 | Cardiology Progress Note ---
Date of Encounter: 03/14/16 Time of Encounter: 09:30 Assessment and Plan (1) Anasarca Current Visit: Yes Status: Acute Per Cardiology: Suspect multifactorial-- acute kidney injury and severe pulmonary hypertension. Presents with ascites, abdominal pain, and bilateral pleural effusions. Albumin noted to be 2.1. Nephrology recommendations noted. Has pending paracentesis scheduled. May require ultrafiltration. (2) Pulmonary hypertension Current Visit: Yes Status: Acute Per Cardiology: Previous echo showed severe pulmonary hypertension. Previous chest x-ray January 2016 showed CHF. Current CXR noted: "Mild congestive heart failure. There is marked prominence of the main pulmonary artery questioning underlying pulmonary arterial hypertension. The possibility of a mediastinal mass cannot be totally excluded. Unenhanced chest CT could be utilized for complete assessment". Mild BNP elevation in the 600's. Patient reports history of pulmonary hypertension follows with pulmonology in [place]. Will review outside medical records. Appreciate Pulmonology recs. Will check echo per pulm request. May need transfer to tertiary center vs. palliative care involvement and consideration of Hospice. (3) Afib Current Visit: Yes Status: Acute Per Cardiology: Patient with long-standing history of atrial fibrillation. Had previously been anticoagulated with Coumadin and Xarelto, however most recently appears discontinued due to anemia and worsening kidney function. Previously seen by Cardiology in [place], [place]. Has not been seen by local cardiology in the past. Currently A. fib with rate 80's to 90's. On Lopressor 25 mg PO BID. Systolic blood pressure currently the 90s. Suspect will be difficult to rate control and to underlying issues improved. K+ improved to 4.1. TSH elevated. Echocardiogram from January 2016 showed EF preserved 60%, indeterminate diastolic function, intraventricular septum flattening suggestive of RV pressure overload, mildly dilated right ventricle with mildly reduced function, mild MR, probable severe TR, severe pulmonary hypertension with estimated RVSP 65 mmHg. Troponin negative at 0.02. Regarding long-term anticoagulation, has [id number] = at least 4. Current hemoglobin and hematocrit 8 and 24. Patient reports Xarelto discontinued prior to moving to [place] recently due to worsening anemia and worsening kidney function. Do not recommend anticoagulation at this time, we'll continue to evaluate during hospital stay. Reports hx of DVT and filter as well. Qualifiers: Qualified Code(s): I48.91 - Unspecified atrial fibrillation (4) Anemia Current Visit: Yes Status: Acute Per Cardiology: Hemoglobin and hematocrit currently 8 and 24. On SQ heparin, monitor cautiously. Monitor for any active bleeding or blood loss. Qualifiers: Qualified Code(s): D64.9 - Anemia, unspecified (5) Acute kidney failure Current Visit: No Status: Acute Per Cardiology: Nephrology following. Appears to have acute kidney injury. Baseline kidney function unknown, last creatinine January 2016 and 1.8 and currently 2.43. Has renal ultrasound pending. Qualifiers: Qualified Code(s): N17.9 - Acute kidney failure, unspecified (6) Hypokalemia Current Visit: Yes Status: Acute Per Cardiology: Potassium noted to be 3.3, not replaced. We'll replaced with K rider-- patient presented with nausea and abdominal pain. (7) UTI (urinary tract infection) Current Visit: Yes Status: Acute Per Cardiology: On antibiotics per primary service with urine culture pending. Afebrile with no leukocytosis. Qualifiers: Qualified Code(s): N39.0 - Urinary tract infection, site not specified; R31.9 - Hematuria, unspecified Discussion w patient/family: The assessment and plan as outlined above was discussed with the patient and/or family members who expressed understanding and agreement. All questions were answered. Thank you for involving us in the care of your patient. Please call with any questions. Subjective Principal diagnosis: Volume Overload Interval history: Patient denies any new concerns or complaints overnight. Reports swelling and shortness of breath slightly improved. Denies any chest pain or palpitations. Objective Vital Signs, Last 4 Hours Temp Pulse Resp BP Pulse Ox 03/14/16 08:51 94 L 03/14/16 07:44 97.8 F 86 18 91/60 94 L 03/14/16 05:39 96/66 General: Conversant HEENT: Atraumatic, Normocephaly Cardiac: No Murmur, Other (Irregular irregular) Lungs: Other (Diminished throughout, conversational dyspnea noted) Neuro: Alert and responsive, No focal deficits noted Abdomen: Other (+1 abdominal pitting edema) Skin: No rashes noted on visualized skin Extremities: Other (+1 nonpitting edema) Results 03/14/16 04:02 03/14/16 04:02 Lab Results Laboratory Tests 03/13/16 03/13/16 03/14/16 12:47 19:56 04:02 B-Natriuretic Peptide 604 H TSH 8.084 H Stool Occult Blood Negative ITS Impressions Abdomen/Pelvis CT 03/12/16 20:51 IMPRESSION: Significant third-spacing with bilateral pleural effusions, ascites, and anasarca. D/ / Billy Tate MD / Billy Tate MD Interpreting Provider: Billy Tate MD Chest X-Ray 03/13/16 14:27 IMPRESSION: Mild congestive heart failure. There is marked prominence of the main pulmonary artery questioning underlying pulmonary arterial hypertension. The possibility of a mediastinal mass cannot be totally excluded. Unenhanced chest CT could be utilized for complete assessment. D/ / 03/13/2016 16:25:37 Varun Jones MD / oscar Interpreting Provider: Varun Jones MD Intake & Output 03/11/16 03/12/16 03/13/16 03/14/16 23:59 23:59 23:59 23:59 Intake Total 1000 / 1000 117.5 / 117.5 Output Total 0 / 0 0 / 0 Balance 1000 / 1000 117.5 / 117.5 Weight 104.326 kg 105.4 kg 108.5 kg Active Medications Dextrose/Water (Dextrose 50% (Syg)) 25 ml IVP AD PRN PRN Reason: Hypoglycemia Stop: 09/12/16 14:14 Glucagon (Glucagen) 1 mg IM ONCE PRN PRN Reason: Hypoglycemia Stop: 09/12/16 14:14 Glucose (Gluctose) 15 gm PO ONCE PRN PRN Reason: Hypoglycemia Stop: 09/12/16 14:14 Glucose (Gluctose) 30 gm PO ONCE PRN PRN Reason: Hypoglycemia Stop: 09/12/16 14:14 Heparin Sodium (Porcine) (Heparin) 5,000 unit SQ Q12HR JARRETT Stop: 09/12/16 18:01 Last Admin: 03/14/16 05:41 Dose: 5,000 unit Ceftriaxone Sodium 2,000 mg/ (Dextrose) 100 mls @ 200 mls/hr IVPB Q24H [facility] Stop: 09/12/16 03:01 Last Admin: 03/14/16 03:26 Dose: 200 mls/hr Diltiazem HCl 125 mg/ Dextrose 125 mls @ 10 mls/hr IVC .[id number] JARRETT; 10 MG/HR PRN Reason: Protocol Stop: 09/12/16 04:01 Last Titration: 03/14/16 05:01 Dose: Infused Dextrose (Dextrose 5%) 1,000 mls @ 100 mls/hr IV CONT PRN PRN Reason: HYPOGLYCEMIA Stop: 09/12/16 14:14 Insulin Human Lispro (Humalog) 0 units SQ HS JARRETT PRN Reason: Protocol Stop: 09/12/16 21:01 Last Admin: 03/13/16 21:34 Dose: Not Given Insulin Human Lispro (Humalog) 0 units SQ TIDAC JARRETT PRN Reason: Protocol Stop: 09/12/16 16:31 Last Admin: 03/14/16 08:02 Dose: Not Given Lactulose (Lactulose) 20 gm PO BID [facility] Stop: 09/12/16 12:16 Last Admin: 03/14/16 08:45 Dose: Not Given Metoprolol Tartrate (Lopressor) 25 mg PO BID [facility] Stop: 09/12/16 21:01 Last Admin: 03/14/16 08:45 Dose: Not Given Morphine Sulfate (Morphine Sulfate) 2 mg IVP Q3H PRN PRN Reason: Severe Pain (7-10) Stop: 09/12/16 01:20 Last Admin: 03/14/16 00:08 Dose: 2 mg Naloxone HCl (Narcan) 0.4 mg IVP Q2MIN PRN PRN Reason: Opioid Reversal Stop: 09/12/16 01:20 Nystatin (Nystop) 1 appl TP BID [facility] Stop: 09/13/16 09:01 Last Admin: 03/14/16 08:47 Dose: 1 appl Ondansetron HCl (Zofran) 4 mg IVP Q8HR PRN PRN Reason: Nausea And Vomiting Stop: 09/12/16 01:20 Last Admin: 03/14/16 03:26 Dose: 4 mg Polyethylene Glycol (Miralax) 17 gm PO DAILY [facility] Stop: 09/12/16 12:16 Last Admin: 03/14/16 08:45 Dose: Not Given Senna/Docusate Sodium (Senna Plus) 2 each PO BID PRN; Protocol PRN Reason: Constipation Stop: 09/12/16 11:09 - Imaging and Cardiology Chest Xray: report reviewed - EKG Interpretation EKG results cardiology: other (A. fib on telemetry in the 80s) Consult Discharge Plan - Plan Referrals: Lolita Vazquez DO [Resident] - 03/22/16 10:00 am
--- NOTE | 2016-03-14 10:01 | Internal Med Progress Note ---
Date of Encounter: 03/14/16 Time of Encounter: 09:51 - Subjective Interval history: Pt is a 65 y/o female with PMH of diabetes, CHF, CKD, Afib, DVT, and pulmonary HTN presented to the hospital for abdominal pain and increasing edema. Patient reports vomiting last night but is feeling better today. Patient is no longer nauseas and reports that she no longer is feeling as bloated. No diarrhea, cp, or increased SOB. - Constitutional Vitals: Temp Pulse Resp BP Pulse Ox 97.8 F 86 18 91/60 94 L 03/14/16 07:44 03/14/16 07:44 03/14/16 07:44 03/14/16 07:44 03/14/16 08:51 General appearance: Present: cooperative, mild distress, A&O X 3, obese, answers questions appropriately - Head Head exam: Present: atraumatic, normocephalic - Eye Eye exam: Present: PERRL, conjuntiva pink, sclera anicteric - Neck Neck exam general surgery: Present: supple, trachea midline. Absent: lymphadenopathy - Respiratory Respiratory exam: Present: rales. Absent: accessory muscle use, respiratory distress, rhonchi - Expanded Respiratory Exam Location: rales: Left, Right, Lower - Cardiovascular Cardiovascular exam: Present: irregular rhythm, +S1, +S2 - GI/Abdominal GI/Abdominal exam: Present: normal bowel sounds, soft, no peritoneal signs. Absent: distended, tenderness - Extremities Exam Extremities exam: Present: pedal edema, warm, radial pulses palpable and symetrical - Neurological Exam Neurological exam: Present: CN II-XII intact, oriented X3, no focal deficits. Absent: pronater drift, facial droop, speech deficit - Skin Skin exam: Present: dry, intact Internal Medicine: Result - Labs CBC & Chem 7: 03/14/16 04:02 03/14/16 04:02 Labs: Short CBC 03/14/16 Range/Units 04:02 WBC 4.3 (4.3-11.1) K/mcL Hgb 8.2 L (11.5-15.4) g/dL Hct 25.0 L (35.3-44.9) % Plt Count 115 L (140-400) K/mcL Neutrophils # 2.6 (1.6-8.9) K/mcL BMP 03/14/16 03/14/16 04:02 04:02 Sodium 136 Potassium 4.1 Chloride 101 Carbon Dioxide 26 BUN 20 Creatinine 2.37 H Glucose 145 H Calcium 8.4 L 8.4 L Liver Function 03/14/16 Range/Units 04:02 Albumin 2.2 L (3.5-5.0) g/dL - ABG Interpretation ABG results: PT/INR, D-dimer PT 17.6 Seconds (9.4-12.1) H 03/12/16 21:16 - Impressions Impressions Chest X-Ray 03/13/16 14:27 IMPRESSION: Mild congestive heart failure. There is marked prominence of the main pulmonary artery questioning underlying pulmonary arterial hypertension. The possibility of a mediastinal mass cannot be totally excluded. Unenhanced chest CT could be utilized for complete assessment. D/ / 03/13/2016 16:25:37 Varun Jones MD / oscar Interpreting Provider: Varun Jones MD Consult Discharge Plan - Plan Referrals: Lolita Vazquez DO [Resident] - 03/22/16 10:00 am
[2016-03-14 10:07] LABS: HIV-1&2 Antibody & p24 Ag Nonreactive (Nonreactive); Hepatitis B Core IgM Nonreactive (Nonreactive); Hepatitis C Virus Antibody Nonreactive (Nonreactive)
[2016-03-14 11:31] LABS: Hepatitis A Antibody IgM Nonreactive (Nonreactive)
--- NOTE | 2016-03-14 11:51 | Nephrology Progress Note ---
Date of Encounter: 03/14/16 Time of Encounter: 11:49 - Assessment and Plan (1) Acute kidney failure Current Visit: No Status: Acute OLGA on CKD. Patient's renal function is slowly improving. Unsure if creatinine will return to baseline of 1.8 vs establish a new baseline. Patient will need cautious diuresis. Qualifiers: Acute renal failure type: unspecified Qualified Code(s): N17.9 - Acute kidney failure, unspecified (2) CHF (congestive heart failure) Current Visit: Yes Status: Acute Cardiology following. Cautious use of diuretics. Qualifiers: Congestive heart failure type: unspecified congestive heart failure type Congestive heart failure chronicity: chronic Qualified Code(s): I50.9 - Heart failure, unspecified (3) CKD (chronic kidney disease) stage 3, GFR 30-59 ml/min Current Visit: No Status: Chronic Patient with vitamin D deficiency that will be addressed with supplements. She has an elevated PTH that will be reevaluated once her vitamin D is replaced. Baseline creatinine of 1.8. (4) Diabetes mellitus Current Visit: No Status: Chronic Management per primary team. Qualifiers: Diabetes mellitus type: type 2 Diabetes mellitus complication status: with kidney complications Diabetes mellitus complication detail: with chronic kidney disease Diabetes mellitus nursing home insulin use: without nursing home use Chronic kidney disease stage: stage 4 (severe) Qualified Code(s): E11.22 - Type 2 diabetes mellitus with diabetic chronic kidney disease; N18.4 - Chronic kidney disease, stage 4 (severe) (5) Afib Current Visit: Yes Status: Acute Rate controlled. Cardiology following. Qualifiers: Atrial fibrillation type: unspecified Qualified Code(s): I48.91 - Unspecified atrial fibrillation (6) Pulmonary hypertension Current Visit: Yes Status: Acute Pulmonary following. She is on 6L of oxygen by nasal cannula at home. (7) UTI (urinary tract infection) Current Visit: Yes Status: Acute Qualifiers: Urinary tract infection type: site unspecified Hematuria presence: with hematuria Qualified Code(s): N39.0 - Urinary tract infection, site not specified; R31.9 - Hematuria, unspecified (8) Anemia Current Visit: Yes Status: Acute iron, vitamin b12 and folate are replete. This may be secondary to renal failure and require CHERELLE. Qualifiers: Anemia type: unspecified type Qualified Code(s): D64.9 - Anemia, unspecified (9) Thrombocytopenia Current Visit: Yes Status: Acute Per primary team. Follow patelets. Subjective Principal diagnosis: Volume Overload Interval history: Patient reports that she is feeling better this am. She denies chest pain and states her breathing is back to baseline. Objective - Vital Signs Vital signs: Vital Signs Temp Pulse Resp BP Pulse Ox 03/14/16 11:00 97.4 F L 96 22 99/58 92 L 03/14/16 08:51 94 L 03/14/16 07:44 97.8 F 86 18 91/60 94 L 03/14/16 05:39 96/66 03/14/16 04:40 97.6 F 70 18 87/49 92 L 03/14/16 00:41 84 92/62 03/14/16 00:15 80 117/79 03/13/16 20:16 97.9 F 120 20 101/61 94 L 03/13/16 16:53 97.7 F 113 16 108/60 96 03/13/16 14:35 97.5 F L 115 16 107/71 93 L 03/13/16 12:18 97.7 F 114 16 102/62 94 L Intake and Output 03/13/16 03/14/16 03/14/16 23:59 07:59 15:59 Intake Total 540 / 540 117.5 / 117.5 0 / 0 Output Total 0 / 0 Balance 540 / 540 117.5 / 117.5 0 / 0 Intake: IV Fluids 300 / 300 117.5 / 117.5 Cardizem 125 MG In 117.5 / 117.5 Dextrose 5% 100 ML @ 10 MG/HR 10 mls/hr IVC . [id number] JARRETT Rx#: [id number] Potassium Chloride 10 mEq 300 / 300 /100mL 10 meq In 100 ml @ 100 mls/hr IVPB Q1H JARRETT Rx#:[id number] Oral 240 / 240 0 / 0 Output: Urine 0 / 0 Other: Meal Dinner Stool Size Moderate Small Stool Consistency liquid liquid Stool Color Brown Brown # Voids 1 # Bowel Movements 1 Weight 108.5 kg Blood Glucose* 152 135 117 Patient Weight 03/14/16 23:59 Weight 108.5 kg - General Appearance General appearance: Present: well-developed, well-nourished EENT: Present: ATNC Neck: Present: supple Respiratory: Present: clear Cardiology: Present: edema, regular rate Gastrointestinal: Present: normoactive bowel sounds, no tenderness, obese Integumentary: Present: warm and dry Neurologic: Present: alert and oriented x3 Psychiatric: Present: mood/affect appropriate - Lab 03/14/16 04:02 03/14/16 04:02 Most recent lab results Calcium 8.4 mg/dL (8.6-10.8) L 03/14/16 04:02 Phosphorus 3.7 mg/dL (2.3-4.7) 03/14/16 04:02 Magnesium 1.7 mg/dL (1.6-2.6) 03/14/16 04:02 Consult Discharge Plan - Plan Referrals: Lolita Vazquez DO [Resident] - 03/22/16 10:00 am
[2016-03-14] MEDS ORDERED: *HR* Morphine 2 MG/ML SYRINGE IVP PRN (12:11)
--- NOTE | 2016-03-14 13:05 | Discharge Summary ---
<Parminder Lockwood - Last Filed: 03/14/16 14:48> Date of Encounter: 03/14/16 Time of Encounter: 13:04 - Discharge Diagnosis (1) Acute decompensated heart failure Priority: Primary Status: Acute (2) Pulmonary hypertension Priority: Primary Status: Acute (3) Anasarca Priority: Primary Status: Acute (4) Anemia Priority: Secondary Status: Chronic Qualifiers: Anemia type: unspecified type Qualified Code(s): D64.9 - Anemia, unspecified (5) Chronic kidney disease, stage 4, severely decreased GFR Priority: Secondary Status: Chronic (6) Thrombocytopenia Priority: Secondary Status: Acute (7) Dyspnea Priority: Primary Status: Acute Qualifiers: Dyspnea type: orthopnea Qualified Code(s): R06.01 - Orthopnea (8) Afib Priority: Secondary Status: Chronic Qualifiers: Atrial fibrillation type: unspecified Qualified Code(s): I48.91 - Unspecified atrial fibrillation - Discharge Medications Home Medications: Albuterol Neb [Proventil Neb] 2.5 mg IH TID PRN 01/12/16 [History] Bumetanide [Bumex] 1 mg PO DAILY 01/12/16 [History] Metoprolol Tartrate [Lopressor] 50 mg PO BID 01/12/16 [History] Rivaroxaban [Xarelto] 20 mg PO QPM 01/12/16 [History] SitaGLIPtin [Januvia] 100 mg PO DAILY 01/12/16 [History] Furosemide [Lasix] 20 mg PO DAILY 03/13/16 [History] Losartan [Cozaar] 25 mg PO DAILY 03/13/16 [History] Magnesium Oxide [Mag-Ox] 400 mg PO DAILY 03/13/16 [History] Potassium Chloride [K-Tab ER] 10 meq PO BID 03/13/16 [History] Allergies/Adverse Reactions: Allergies No Known Allergies Allergy (Verified 01/11/16 18:31) Procedures/tests Complete & Pending: Procedures Performed prior 72 hours Category Date Time Status US retroperitoneal comp [US] Routine Exams 03/14/16 14:30 Ordered IR paracentesis ultrasound [IR] Routine IR 03/14/16 05:40 Ordered EV echocardiogram Routine Y 03/14/16 12:02 Ordered Date of admission: 03/13/16 04:57 Primary care physician: Gaetano Hayward DO Consults: 03/13/16 10:36 Consult to Nutrition [CONS] Routine Comment: Consulting Provider: NUTRITION Reason for Dietary Consult: Supplemental Nutrition 03/13/16 15:23 Consult to Pulmonology [CONS] Routine Consulting Provider: [facility] [place] Reason for Consult: severe PTHN, previously seen pulm in [place], presents with anasarca-- discussed with Dr. Rosenberg Time Notified: 15:15 Call Completed: Yes 03/14/16 12:58 Consult to Interventional Radiology [CONS] Routine Consulting Provider: Radiology Interventional [place] Reason for Consult: Order for a paracentesis Time Notified: 13:00 Call Completed: Yes Discharging clinician: Jn Sumner Anticipated date of discharge: 03/14/16 - Patient Status Disposition: Transfer Critical Access Hosp Condition: Fair Overall status at discharge: patient is not back to baseline - Discharge Instructions Follow Up With: Lolita Vazquez DO [Resident] - 03/22/16 10:00 am Forms: ED Satisfaction Letter, Work/School Release - Diet and Activity Activity: wear oxygen at all times Hospital course: Ms. Acosta is a 65 year old female with past medical history For congestive heart failure, previous DVT, diabetes, hyperlipidemia, pulmonary hypertension, and chronic kidney disease presented to the emergency department for abdominal pain. The patient states that her symptoms started approximately 1 week ago and consist of pain, bloating after eating, nausea, and constipation. Patient reports that she has had poor oral intake for the past week due to the pain and discomfort caused by eating. She states that this is causing her to ingest less fluids as well. She denies chest pain, she did have one instance of vomiting earlier today. She denies any flutter bile in the vomit. She states that her most recent bowel movement was yesterday, and was small and loose, but required a lot of straining. She reports not feeling relief even after having a bowel movement. She complains of shortness of breath, but states that this is been present for the past 4 months. She is on home oxygen 6 L for pulmonary hypertension. She states she has never smoked and does not have a history of COPD. CHF: Echocardiogram on 01/12/16 demonstrators left ventricular ejection fraction of 60% with indeterminate diastolic function. There is also suggested findings of right ventricular pressure overload and severe pulmonary hypertension with estimated right ventricular systolic pressure of 65mmHg. The patient is currently volume overloaded with pitting pedal edema and bilateral pleural effusions. Diuresis could result in worsening of tachycardia, hypotension, and renal function. Anasarca secondary to renal failure and congestive heart failure with ascites, abdominal pain, and bilateral pleural effusions. Consideration for SBP. Will order diagnostic paracentesis. Paracentesis not done. Ceftriaxone 2g/day empirically. UTI: The patient was given a dose of ceftriaxone in the emergency department. Continue Ceftriaxone. Urine cultures reveal Gran Negative Rods >100,000 CFU/ml. Final results pending at this time. Acute on chronic renal failure. Patient was previously stage 3 CKD. She admits to poor oral intake due to abdominal pain and nausea. GFR of 24. Fluid repletion will likely result in worsening of third spacing. Fluid repletion was not started Cardio: Suspect multifactorial-- acute kidney injury and severe pulmonary hypertension. Presents with ascites, abdominal pain, and bilateral pleural effusions. Albumin noted to be 2.1. Nephrology recommendations noted. Has pending paracentesis scheduled. May require ultrafiltration. Previous echo showed severe pulmonary hypertension. Previous chest x-ray January 2016 showed CHF. Current CXR noted: "Mild congestive heart failure. There is marked prominence of the main pulmonary artery questioning underlying pulmonary arterial hypertension. The possibility of a mediastinal mass cannot be totally excluded. Unenhanced chest CT could be utilized for complete assessment". Mild BNP elevation in the 600's. Patient reports history of pulmonary hypertension follows with pulmonology in [place]. Will review outside medical records. Appreciate Pulmonology recs. Will check echo per pulm request. May need transfer to tertiary center vs. palliative care involvement and consideration of Hospice.Patient with long- standing history of atrial fibrillation. Had previously been anticoagulated with Coumadin and Xarelto, however most recently appears discontinued due to anemia and worsening kidney function. Previously seen by Cardiology in [place], [place]. Has not been seen by local cardiology in the past. Currently A. fib with rate 80's to 90's. On Lopressor 25 mg PO BID. Systolic blood pressure currently the 90s. Suspect will be difficult to rate control and to underlying issues improved. K+ improved to 4.1. TSH elevated. Echocardiogram from January 2016 showed EF preserved 60%, indeterminate diastolic function, intraventricular septum flattening suggestive of RV pressure overload, mildly dilated right ventricle with mildly reduced function, mild MR, probable severe TR, severe pulmonary hypertension with estimated RVSP 65 mmHg. Troponin negative at 0.02. Regarding long-term anticoagulation, has [id number] = at least 4. Current hemoglobin and hematocrit 8 and 24. Patient reports Xarelto discontinued prior to moving to [place] recently due to worsening anemia and worsening kidney function. Do not recommend anticoagulation at this time, we'll continue to evaluate during hospital stay. Reports hx of DVT and filter as well. Pulm:Conclusion this is a 65-year-old woman with a history of pulmonary hypertension presenting with worsening anasarca and kidney dysfunction. Overall presentation is very concerning for worsening pulmonary hypertension per record patient would fit category of pulmonary arteriolar hypertension or at least concerning upfront. I reviewed her prior echo done approx 2 months prior and it is notable for sever Pulm HTN with reduced RV function. Left heart with PEF and diastology could not be determined. 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 Cannot exclude CTEPH but would hold off on further w/u as hopefully prior records will help to sort this out (which we have requested). Dictation is very concerning and I suspect that if patient does have a history of pulmonary arteriolar hypertension she would need to be transferred to a tertiary referral center for catheter directed (likely) infusion therapy given severity of kidney dysfunction and with likely inotropic support given borderline blood pressure. If outside hospital records to term and that this is in fact not pulmonary arterial hypertension but she has some significant left heart disease which seems unlikely given the echo that was done in the recent past here at this hospital would treat as decompensated left-sided heart failure and would have to work very closely with cardiology to address this. Vital signs: At time of d/c transfer HR: 104, Resp: 20, T: 97.7, BP: 100/63, O2 94% on 6L nc. Laboratory Tests 03/12/16 03/12/16 03/12/16 21:16 21:16 21:16 WBC 5.3 RBC 3.02 L Hgb 8.0 L Hct 24.2 L MCV 80.1 L MCH 26.5 L MCHC 33.1 RDW 25.9 H Plt Count 119 L MPV TNP Immature Gran % 0.6 Seg Neutrophils % 59.3 Lymphocytes % 18.1 Monocytes % 18.7 Eosinophils % 2.5 Basophils % 0.8 Neutrophils # 3.1 Lymphocytes # 1.0 Monocytes # 1.0 Eosinophils # 0.1 Basophils # 0.0 Nucleated RBCs/100 WBC 1.3 H Reactive Lymphocytes Platelet Estimate Normal Large Platelets Immature Plt Fraction Hypochromasia Present A Poikilocytosis Anisocytosis Microcytosis Target Cells Acanthocytes (Spur) 1+ A PT 17.6 H INR 1.6 APTT 38.8 H Sodium Potassium Chloride Carbon Dioxide BUN Creatinine Est GFR ( Amer) Est GFR (Non-Af Amer) BUN/Creatinine Ratio Glucose POC Glucose Est Mean Plasma Glucose Hemoglobin A1c Calculated Osmolality Lactic Acid Uric Acid Calcium Phosphorus Magnesium Iron % Saturation Transferrin Ferritin Total Bilirubin Direct Bilirubin Indirect Bilirubin AST ALT Alkaline Phosphatase Troponin I 0.02 C-Reactive Protein B-Natriuretic Peptide Serum Total Protein Albumin Globulin Albumin/Globulin Ratio Lipase Vitamin B12 25-OH Vitamin D Total Folate TSH PTH Intact Urine Color Urine Clarity Urine pH Ur Specific Etoile Urine Protein Urine Glucose (UA) Urine Ketones Urine Blood Urine Nitrite Urine Bilirubin Urine Urobilinogen Ur Leukocyte Esterase Urine Microscopic RBC Urine Microscopic WBC Ur Squamous Epith Cells Urine Bacteria Hyaline Casts Ur Culture Indicated? Stool Occult Blood Rheumatoid Factor Hepatitis A IgM Ab Hep Bs Antigen Hep B Core IgM Ab Hepatitis C Ab Screen HIV Ag/Ab Combo Qual Specimen Rejected Blood Type Antibody Screen Crossmatch 03/12/16 03/12/16 03/12/16 21:16 21:44 21:44 WBC RBC Hgb Hct MCV MCH MCHC RDW Plt Count MPV Immature Gran % Seg Neutrophils % Lymphocytes % Monocytes % Eosinophils % Basophils % Neutrophils # Lymphocytes # Monocytes # Eosinophils # Basophils # Nucleated RBCs/100 WBC Reactive Lymphocytes Platelet Estimate Large Platelets Immature Plt Fraction Hypochromasia Poikilocytosis Anisocytosis Microcytosis Target Cells Acanthocytes (Spur) PT INR APTT Sodium 140 Potassium 3.3 L Chloride 101 Carbon Dioxide 32 H BUN 23 H Creatinine 2.43 H Est GFR ( Amer) 24 L Est GFR (Non-Af Amer) 20 L BUN/Creatinine Ratio 9 Glucose 125 H POC Glucose Est Mean Plasma Glucose Hemoglobin A1c Calculated Osmolality 295 Lactic Acid 1.7 Uric Acid Calcium 8.5 L Phosphorus Magnesium Iron % Saturation Transferrin Ferritin Total Bilirubin 2.2 H Direct Bilirubin 1.6 H Indirect Bilirubin 0.6 AST 32 ALT 30 Alkaline Phosphatase 108 Troponin I C-Reactive Protein B-Natriuretic Peptide Serum Total Protein 7.6 Albumin 2.1 L Globulin 5.5 H Albumin/Globulin Ratio 0.4 L Lipase 35 Vitamin B12 25-OH Vitamin D Total Folate TSH PTH Intact Urine Color Urine Clarity Urine pH Ur Specific Etoile Urine Protein Urine Glucose (UA) Urine Ketones Urine Blood Urine Nitrite Urine Bilirubin Urine Urobilinogen Ur Leukocyte Esterase Urine Microscopic RBC Urine Microscopic WBC Ur Squamous Epith Cells Urine Bacteria Hyaline Casts Ur Culture Indicated? Stool Occult Blood Rheumatoid Factor Hepatitis A IgM Ab Hep Bs Antigen Hep B Core IgM Ab Hepatitis C Ab Screen HIV Ag/Ab Combo Qual Specimen Rejected Hemolyzed Blood Type Antibody Screen Crossmatch 03/12/16 03/13/16 03/13/16 23:10 01:52 05:15 WBC RBC Hgb Hct MCV MCH MCHC RDW Plt Count MPV Immature Gran % Seg Neutrophils % Lymphocytes % Monocytes % Eosinophils % Basophils % Neutrophils # Lymphocytes # Monocytes # Eosinophils # Basophils # Nucleated RBCs/100 WBC Reactive Lymphocytes Platelet Estimate Large Platelets Immature Plt Fraction Hypochromasia Poikilocytosis Anisocytosis Microcytosis Target Cells Acanthocytes (Spur) PT INR APTT Sodium Potassium Chloride Carbon Dioxide BUN Creatinine Est GFR ( Amer) Est GFR (Non-Af Amer) BUN/Creatinine Ratio Glucose POC Glucose 134 H Est Mean Plasma Glucose Hemoglobin A1c Calculated Osmolality Lactic Acid Uric Acid Calcium Phosphorus Magnesium Iron % Saturation Transferrin Ferritin Total Bilirubin Direct Bilirubin Indirect Bilirubin AST ALT Alkaline Phosphatase Troponin I C-Reactive Protein 45 H B-Natriuretic Peptide Serum Total Protein Albumin Globulin Albumin/Globulin Ratio Lipase Vitamin B12 25-OH Vitamin D Total Folate TSH PTH Intact Urine Color Dark Yellow Urine Clarity Cloudy A Urine pH 6.0 Ur Specific Etoile 1.020 Urine Protein 30 H Urine Glucose (UA) Normal Urine Ketones Negative Urine Blood Moderate H Urine Nitrite Negative Urine Bilirubin Negative Urine Urobilinogen Normal Ur Leukocyte Esterase Moderate H Urine Microscopic RBC 15-30 H Urine Microscopic WBC TNTC H Ur Squamous Epith Cells Many H Urine Bacteria Many H Hyaline Casts None Seen Ur Culture Indicated? YES A Stool Occult Blood Rheumatoid Factor Hepatitis A IgM Ab Hep Bs Antigen Hep B Core IgM Ab Hepatitis C Ab Screen HIV Ag/Ab Combo Qual Specimen Rejected Blood Type Antibody Screen Crossmatch 03/13/16 03/13/16 03/13/16 06:20 12:14 12:47 WBC RBC Hgb Hct MCV MCH MCHC RDW Plt Count MPV Immature Gran % Seg Neutrophils % Lymphocytes % Monocytes % Eosinophils % Basophils % Neutrophils # Lymphocytes # Monocytes # Eosinophils # Basophils # Nucleated RBCs/100 WBC Reactive Lymphocytes Platelet Estimate Large Platelets Immature Plt Fraction Hypochromasia Poikilocytosis Anisocytosis Microcytosis Target Cells Acanthocytes (Spur) PT INR APTT Sodium Potassium Chloride Carbon Dioxide BUN Creatinine Est GFR ( Amer) Est GFR (Non-Af Amer) BUN/Creatinine Ratio Glucose POC Glucose 112 H 109 H Est Mean Plasma Glucose Hemoglobin A1c Calculated Osmolality Lactic Acid Uric Acid Calcium Phosphorus Magnesium 1.8 Iron 75 % Saturation 29 Transferrin 187 Ferritin 91 Total Bilirubin Direct Bilirubin Indirect Bilirubin AST ALT Alkaline Phosphatase Troponin I C-Reactive Protein B-Natriuretic Peptide Serum Total Protein Albumin Globulin Albumin/Globulin Ratio Lipase Vitamin B12 25-OH Vitamin D Total Folate TSH PTH Intact Urine Color Urine Clarity Urine pH Ur Specific Etoile Urine Protein Urine Glucose (UA) Urine Ketones Urine Blood Urine Nitrite Urine Bilirubin Urine Urobilinogen Ur Leukocyte Esterase Urine Microscopic RBC Urine Microscopic WBC Ur Squamous Epith Cells Urine Bacteria Hyaline Casts Ur Culture Indicated? Stool Occult Blood Rheumatoid Factor Hepatitis A IgM Ab Hep Bs Antigen Hep B Core IgM Ab Hepatitis C Ab Screen HIV Ag/Ab Combo Qual Specimen Rejected Blood Type Antibody Screen Crossmatch 03/13/16 03/13/16 03/13/16 12:47 12:47 16:49 WBC RBC Hgb Hct MCV MCH MCHC RDW Plt Count MPV Immature Gran % Seg Neutrophils % Lymphocytes % Monocytes % Eosinophils % Basophils % Neutrophils # Lymphocytes # Monocytes # Eosinophils # Basophils # Nucleated RBCs/100 WBC Reactive Lymphocytes Platelet Estimate Large Platelets Immature Plt Fraction Hypochromasia Poikilocytosis Anisocytosis Microcytosis Target Cells Acanthocytes (Spur) PT INR APTT Sodium Potassium Chloride Carbon Dioxide BUN Creatinine Est GFR ( Amer) Est GFR (Non-Af Amer) BUN/Creatinine Ratio Glucose POC Glucose 135 H Est Mean Plasma Glucose Hemoglobin A1c Calculated Osmolality Lactic Acid Uric Acid Calcium Phosphorus Magnesium Iron % Saturation Transferrin Ferritin Total Bilirubin Direct Bilirubin Indirect Bilirubin AST ALT Alkaline Phosphatase Troponin I C-Reactive Protein B-Natriuretic Peptide 604 H Serum Total Protein Albumin Globulin Albumin/Globulin Ratio Lipase Vitamin B12 690 25-OH Vitamin D Total Folate 14.3 TSH PTH Intact Urine Color Urine Clarity Urine pH Ur Specific Etoile Urine Protein Urine Glucose (UA) Urine Ketones Urine Blood Urine Nitrite Urine Bilirubin Urine Urobilinogen Ur Leukocyte Esterase Urine Microscopic RBC Urine Microscopic WBC Ur Squamous Epith Cells Urine Bacteria Hyaline Casts Ur Culture Indicated? Stool Occult Blood Rheumatoid Factor Hepatitis A IgM Ab Nonreactive Hep Bs Antigen Nonreactive Hep B Core IgM Ab Nonreactive Hepatitis C Ab Screen Nonreactive HIV Ag/Ab Combo Qual Nonreactive Specimen Rejected Blood Type Antibody Screen Crossmatch 03/13/16 03/13/16 03/14/16 19:56 20:18 04:02 WBC RBC Hgb Hct MCV MCH MCHC RDW Plt Count MPV Immature Gran % Seg Neutrophils % Lymphocytes % Monocytes % Eosinophils % Basophils % Neutrophils # Lymphocytes # Monocytes # Eosinophils # Basophils # Nucleated RBCs/100 WBC Reactive Lymphocytes Platelet Estimate Large Platelets Immature Plt Fraction Hypochromasia Poikilocytosis Anisocytosis Microcytosis Target Cells Acanthocytes (Spur) PT INR APTT Sodium Potassium Chloride Carbon Dioxide BUN Creatinine Est GFR ( Amer) Est GFR (Non-Af Amer) BUN/Creatinine Ratio Glucose POC Glucose 152 H Est Mean Plasma Glucose Hemoglobin A1c Calculated Osmolality Lactic Acid Uric Acid 12.6 H Calcium 8.4 L Phosphorus 3.7 Magnesium 1.7 Iron % Saturation Transferrin Ferritin Total Bilirubin Direct Bilirubin Indirect Bilirubin AST ALT Alkaline Phosphatase Troponin I C-Reactive Protein B-Natriuretic Peptide Serum Total Protein Albumin 2.2 L Globulin Albumin/Globulin Ratio Lipase Vitamin B12 25-OH Vitamin D Total Folate TSH 8.084 H PTH Intact Urine Color Urine Clarity Urine pH Ur Specific Etoile Urine Protein Urine Glucose (UA) Urine Ketones Urine Blood Urine Nitrite Urine Bilirubin Urine Urobilinogen Ur Leukocyte Esterase Urine Microscopic RBC Urine Microscopic WBC Ur Squamous Epith Cells Urine Bacteria Hyaline Casts Ur Culture Indicated? Stool Occult Blood Negative Rheumatoid Factor Hepatitis A IgM Ab Hep Bs Antigen Hep B Core IgM Ab Hepatitis C Ab Screen HIV Ag/Ab Combo Qual Specimen Rejected Blood Type Antibody Screen Crossmatch 03/14/16 03/14/16 03/14/16 04:02 04:02 04:02 WBC RBC Hgb Hct MCV MCH MCHC RDW Plt Count MPV Immature Gran % Seg Neutrophils % Lymphocytes % Monocytes % Eosinophils % Basophils % Neutrophils # Lymphocytes # Monocytes # Eosinophils # Basophils # Nucleated RBCs/100 WBC Reactive Lymphocytes Platelet Estimate Large Platelets Immature Plt Fraction Hypochromasia Poikilocytosis Anisocytosis Microcytosis Target Cells Acanthocytes (Spur) PT INR APTT Sodium Potassium Chloride Carbon Dioxide BUN Creatinine Est GFR ( Amer) Est GFR (Non-Af Amer) BUN/Creatinine Ratio Glucose POC Glucose Est Mean Plasma Glucose Hemoglobin A1c Calculated Osmolality Lactic Acid Uric Acid Calcium Phosphorus Magnesium Iron % Saturation Transferrin Ferritin Total Bilirubin Direct Bilirubin Indirect Bilirubin AST ALT Alkaline Phosphatase Troponin I C-Reactive Protein B-Natriuretic Peptide Serum Total Protein Albumin Globulin Albumin/Globulin Ratio Lipase Vitamin B12 25-OH Vitamin D Total 26 L Folate TSH PTH Intact 471.8 H Urine Color Urine Clarity Urine pH Ur Specific Etoile Urine Protein Urine Glucose (UA) Urine Ketones Urine Blood Urine Nitrite Urine Bilirubin Urine Urobilinogen Ur Leukocyte Esterase Urine Microscopic RBC Urine Microscopic WBC Ur Squamous Epith Cells Urine Bacteria Hyaline Casts Ur Culture Indicated? Stool Occult Blood Rheumatoid Factor < 15 Hepatitis A IgM Ab Hep Bs Antigen Hep B Core IgM Ab Hepatitis C Ab Screen HIV Ag/Ab Combo Qual Specimen Rejected Blood Type Antibody Screen Crossmatch 03/14/16 03/14/16 03/14/16 04:02 04:02 04:02 WBC 4.3 RBC 3.07 L Hgb 8.2 L Hct 25.0 L MCV 81.4 L MCH 26.7 L MCHC 32.8 RDW 26.6 H Plt Count 115 L MPV 10.7 Immature Gran % 0.5 Seg Neutrophils % 60.4 Lymphocytes % 18.6 Monocytes % 15.8 Eosinophils % 3.1 Basophils % 1.6 Neutrophils # 2.6 Lymphocytes # 0.8 Monocytes # 0.7 Eosinophils # 0.1 Basophils # 0.1 Nucleated RBCs/100 WBC 1.4 H Reactive Lymphocytes Present A Platelet Estimate Slight Decrease L Large Platelets Present A Immature Plt Fraction 9.3 H Hypochromasia Poikilocytosis 3+ A Anisocytosis 3+ A Microcytosis Present A Target Cells 3+ A Acanthocytes (Spur) PT INR APTT Sodium 136 Potassium 4.1 Chloride 101 Carbon Dioxide 26 BUN 20 Creatinine 2.37 H Est GFR ( Amer) 25 L Est GFR (Non-Af Amer) 21 L BUN/Creatinine Ratio 8 Glucose 145 H POC Glucose Est Mean Plasma Glucose 114 Hemoglobin A1c 5.6 Calculated Osmolality 287 Lactic Acid Uric Acid Calcium 8.4 L Phosphorus Magnesium Iron % Saturation Transferrin Ferritin Total Bilirubin Direct Bilirubin Indirect Bilirubin AST ALT Alkaline Phosphatase Troponin I C-Reactive Protein B-Natriuretic Peptide Serum Total Protein Albumin Globulin Albumin/Globulin Ratio Lipase Vitamin B12 25-OH Vitamin D Total Folate TSH PTH Intact Urine Color Urine Clarity Urine pH Ur Specific Etoile Urine Protein Urine Glucose (UA) Urine Ketones Urine Blood Urine Nitrite Urine Bilirubin Urine Urobilinogen Ur Leukocyte Esterase Urine Microscopic RBC Urine Microscopic WBC Ur Squamous Epith Cells Urine Bacteria Hyaline Casts Ur Culture Indicated? Stool Occult Blood Rheumatoid Factor Hepatitis A IgM Ab Hep Bs Antigen Hep B Core IgM Ab Hepatitis C Ab Screen HIV Ag/Ab Combo Qual Specimen Rejected Blood Type Antibody Screen Crossmatch 03/14/16 03/14/16 03/14/16 07:49 10:23 11:43 WBC RBC Hgb Hct MCV MCH MCHC RDW Plt Count MPV Immature Gran % Seg Neutrophils % Lymphocytes % Monocytes % Eosinophils % Basophils % Neutrophils # Lymphocytes # Monocytes # Eosinophils # Basophils # Nucleated RBCs/100 WBC Reactive Lymphocytes Platelet Estimate Large Platelets Immature Plt Fraction Hypochromasia Poikilocytosis Anisocytosis Microcytosis Target Cells Acanthocytes (Spur) PT INR APTT Sodium Potassium Chloride Carbon Dioxide BUN Creatinine Est GFR ( Amer) Est GFR (Non-Af Amer) BUN/Creatinine Ratio Glucose POC Glucose 135 H 117 H Est Mean Plasma Glucose Hemoglobin A1c Calculated Osmolality Lactic Acid Uric Acid Calcium Phosphorus Magnesium Iron % Saturation Transferrin Ferritin Total Bilirubin Direct Bilirubin Indirect Bilirubin AST ALT Alkaline Phosphatase Troponin I C-Reactive Protein B-Natriuretic Peptide Serum Total Protein Albumin Globulin Albumin/Globulin Ratio Lipase Vitamin B12 25-OH Vitamin D Total Folate TSH PTH Intact Urine Color Urine Clarity Urine pH Ur Specific Etoile Urine Protein Urine Glucose (UA) Urine Ketones Urine Blood Urine Nitrite Urine Bilirubin Urine Urobilinogen Ur Leukocyte Esterase Urine Microscopic RBC Urine Microscopic WBC Ur Squamous Epith Cells Urine Bacteria Hyaline Casts Ur Culture Indicated? Stool Occult Blood Rheumatoid Factor Hepatitis A IgM Ab Hep Bs Antigen Hep B Core IgM Ab Hepatitis C Ab Screen HIV Ag/Ab Combo Qual Specimen Rejected Blood Type O POSITIVE Antibody Screen NEGATIVE Crossmatch See Detail Abdomen/Pelvis CT 03/12/16 20:51 IMPRESSION: Significant third-spacing with bilateral pleural effusions, ascites, and anasarca. D/ / Billy Tate MD / Billy Tate MD Interpreting Provider: Billy Tate MD Chest X-Ray 03/13/16 14:27 IMPRESSION: Mild congestive heart failure. There is marked prominence of the main pulmonary artery questioning underlying pulmonary arterial hypertension. The possibility of a mediastinal mass cannot be totally excluded. Unenhanced chest CT could be utilized for complete assessment. D/ / 03/13/2016 16:25:37 Varun Jones MD / oscar Interpreting Provider: Varun Jones MD Accepted by [facility]. Dr. Palm. - Time Spent with Patient Total time spent providing and/or coordinating discharge services: Greater than 30 minutes - Constitutional Vitals: Temp Pulse Resp BP Pulse Ox 97.4 F L 96 22 99/58 92 L 03/14/16 11:00 03/14/16 11:00 03/14/16 11:00 03/14/16 11:00 03/14/16 11:00 General appearance: Present: cooperative, mild distress, A&O X 3, obese, answers questions appropriately <Jn Sumner - Last Filed: 03/14/16 17:29> Date of Encounter: 03/14/16 Procedures/tests Complete & Pending: Procedures Performed prior 72 hours Category Date Time Status US retroperitoneal comp [US] Routine Exams 03/14/16 19:30 Ordered ECG 12 lead ECG [ECG] Routine Y 03/13/16 03:40 Completed EV echocardiogram Routine Y 03/14/16 12:02 Ordered Date of admission: 03/13/16 04:57 Primary care physician: Gaetano Hayward DO Consults: 03/13/16 10:36 Consult to Nutrition [CONS] Routine Comment: Consulting Provider: NUTRITION Reason for Dietary Consult: Supplemental Nutrition 03/13/16 15:23 Consult to Pulmonology [CONS] Routine Consulting Provider: Pulm [facility] [place] Reason for Consult: severe PTHN, previously seen pulm in [place], presents with anasarca-- discussed with Dr. Rosenberg Time Notified: 15:15 Call Completed: Yes 03/14/16 12:58 Consult to Interventional Radiology [CONS] Routine Consulting Provider: Radiology Interventional [place] Reason for Consult: Order for a paracentesis Time Notified: 13:00 Call Completed: Yes Hospital course: Ms. Acosta is a 65 year old female - Time Spent with Patient Total time spent providing and/or coordinating discharge services: - Constitutional Vitals: Temp Pulse Resp BP Pulse Ox 97.3 F L 100 20 103/88 93 L 03/14/16 17:02 03/14/16 17:02 03/14/16 17:02 03/14/16 17:02 03/14/16 17:02 - Attending Attestation I examined this patient and my medical decision-making was reviewed with the ARCHITECTURAL PRACTICE MANAGER/PA/Advanced Practice Nurse/Resident Physician. I agree with the documented findings, disposition and treatment plan as described except to the extent set forth below. History of pulmonary hypertension. Admitted due to abdominal pain and anasarca. Acute kidney injury, anemia, thrombocytopenia. Patient has been accepted to [facility] for further management of pulmonary hypertension along with severe mitral regurgitation. Awaiting transfer. Accepting physician: Dr. Palm. Echo EF preserved 60%, indeterminate diastolic function, intraventricular septum flattening suggestive of RV pressure overload, mildly dilated right ventricle with mildly reduced function, mild MR, probable severe TR, severe pulmonary hypertension with estimated RVSP 65 mmHg.
[2016-03-14] MEDS ORDERED: 0.9 % Sodium Chloride 500 ML ONE (13:08)
--- NOTE | 2016-03-14 13:20 | Event Note ---
Date of Encounter: 03/14/16 Time of Encounter: 13:00 - Cardiology Event Note Patient reviewed and discussed with Pulmonology with recs for transfer to tertiary center vs. possible RHC and inotropic support. Preliminary discussions with patient regarding possible Hospice and she did not seem interested. Discussed with Dr. Templeton and recs to transfer to tertiary center.
--- NOTE | 2016-03-14 13:46 | Electrocardiograph Report ---
[facility] Test Date: 2016-03-13 Pat Name: TERRENCE LOPEZ Department: 112 Room: 2A25 Gender: F [employer]anger: TYRELL : 1950 Requested By: Jn Sumner Order Number: [id number] Reading MD: Saul Xiao DO Measurements Intervals [place] Rate: 142 P: [place]: 0 QRS: 71 QRSD: 65 T: 180 QT: 297 QTc: 379 Interpretive Statements Atrial fibrillation with rapid ventricular response Low QRS voltage Nonspecific ST-T changes Electronically Signed On 03-14-16 13:45:30 EST by Saul Xiao DO
[2016-03-14 16:58] VITALS: BP 103/88
[2016-03-16 07:57] LABS: Myeloperoxidase Ab 9 AU/mL (0-19); Serine Protease-3 Antibody 1 AU/mL (0-19)
[2016-03-16 08:15] LABS: ANA IgG by ELISA NONE DETECTED (None Detected)
[2016-03-19 10:06] LABS: Cryoglobulin NEG 72HOUR (NEG 72Hour)
[2016-03-22 11:56] LABS: Alpha 2 Globulin (PEP) 0.5 g/dL (0.5-1.1); Beta Globulin (PEP) 1.3 g/dL (0.5-1.1)
== END 2016-03-14 19:38 | disposition critical access hospital (66) | DRG 292 ==
LOC: 2ANU 20:24 → EMEROO 20:24 → 2ANU 03-13 00:42 → SUATTDRO 03-13 04:57
PROVIDERS: ADMIT Family Medicine; ATTEND Internal Medicine